=== PATIENT | male | born 1985 | race Caucasian/White ===

== ENCOUNTER 2024-03-22 13:49 | Day surgery (SDC) | payer BC, MEDICAID, SELFPAY ==
--- NOTE | 2024-03-19 07:00 | EKG_ITS ---
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
[2024-03-21 13:47] LABS: Basophils # (Auto) 0.1 Thou/mm3 (0.0-0.2); Basophils % (Auto) 1 % (0-2.5); Eosinophils # (Auto) 0.1 Thou/mm3 (0.0-0.5); Eosinophils % (Auto) 1 % (0-10); Hematocrit 46.1 % (41.0-53.0); Hemoglobin 15.5 g/dL (13.5-16.0); Immature Granulocytes % (Auto) 0 % (0-0); Immature Granulocytes Auto 0.02 Thou/mm3 (0.00-0.00); Lymphocytes # (Auto) 1.8 Thou/mm3 (1.0-4.8); Lymphocytes % (Auto) 22 % (10-50); Mean Corpuscular HGB Conc 33.6 g/dl (31.0-37.0); Mean Corpuscular Volume 86 fL (80-100); Monocytes # (Auto) 0.6 Thou/mm3 (0.0-0.8); Monocytes % (Auto) 7 % (0-12); Neutrophils # (Auto) 5.7 Thou/mm3 (1.8-7.7); Neutrophils % (Auto) 69 % (37-80); Nucleated Red Blood Cell % 0 /100 WBC (0); Platelet Count 212 Thou/mm3 (140-440); RDW Standard Deviation 41.2 fL (35.1-43.9); Red Blood Count 5.35 Miln/mm3 (4.50-5.90); White Blood Count 8.3 Thou/mm3 (3.8-10.6)
[2024-03-21 13:57] LABS: Anion Gap 7 (7-16); BUN/Creatinine Ratio 16 Ratio (12-20); Blood Urea Nitrogen 16 mg/dL (9-23); Calcium 10.1 mg/dL (8.3-10.6); Carbon Dioxide 27.9 mMol/L (20.0-31.0); Chloride 106 mMol/L (98-107); Glucose 109 mg/dL (74-106); Osmolality,Calculated 283 (275-295); Potassium 4.2 mMol/L (3.4-5.1); Sodium 141 mMol/L (136-145); eGFR > 60 See Note
[2024-03-21 14:05] LABS: Partial Thromboplastin Time 30.9 Seconds (22.0-36.0); Prothrombin Time 11.4 Seconds (9.0-12.2)
[2024-03-22] VITALS (12 sets, daily range): BP systolic 105–136; BP diastolic 70–92; PULSE 60–88; RESP 16–24; TEMP 36.8–37; O2SAT 94–100
[2024-03-22] MEDS: DEXTROSE 5%-0.45% NS 500 ML 30 ML IV (14:57)
[2024-03-22] MEDS: CEFAZOLIN IV (14:57)
[2024-03-22] MEDS: SODIUM CHLORIDE 0.9% IV (14:57)
[2024-03-22] MEDS: VANCOMYCIN/NS 1 GM IVPB 200 ML IV (16:42)
--- NOTE | 2024-03-22 17:46 | ESOP_ITS ---
RE: MI SANDERS : 1985 DATE OF OPERATION: 03/22/2024 PROCEDURE PERFORMED: 1. Removal and replacement of dual-chamber permanent pacemaker generator, CPT code 80727. 2. Conscious sedation 30 minutes duration. PREOPERATIVE DIAGNOSES: Complete heart block asystole status post pacemaker implantation. Pacemaker reached elective replacement indicators and battery depletion. The patient is a pacemaker dependent. POSTOPERATIVE DIAGNOSIS: Successful removal and replacement of a dual-chamber permanent pacemaker generator. ANESTHESIA: Conscious sedation under local anesthesia. HISTORY AND INDICATIONS: The patient is a 38-year-old male with a past medical history of aortic valve replacement surgery and complete heart block asystole, pacemaker dependent. He has had a permanent pacemaker implantation more than 20 years ago. The patient is a pacemaker dependent. Recent interrogation showed that the patient's SHAMIKA tripped a month ago. The patient is a pacemaker dependent, now in a VVI mode, symptomatic. Dual-chamber pacemaker generator removal and replacement recommended under conscious sedation under local anesthesia. The patient was on warfarin, which was discontinued prior to the procedure. DESCRIPTION OF PROCEDURE: The patient was brought to cardiac catheterization laboratory. Timeout was taken. Conscious sedation was given with 2 mg Versed and 100 mcg fentanyl, additional 1 mg Versed given. Left subclavian area was prepared in sterile fashion. Linear incision was made over the pocket generator and the generator was exposed. Capsule was restricted. The pocket was explanted and a new generator by [employer] was attached to the lead and antibiotic solution was used to close the pocket. Preop 1 g of Ancef was also given. Subsequently, new Medtronic dual- chamber pacemaker generator was connected, quick connect. Thresholds were excellent. P waves were measured to be 2 volts. R waves could not be measured. The patient has no R waves underlying. Lead impedance atrium 437, _V lead 478, lead threshold 0.75 in atrium, 0.75 in the ventricle. The pacemaker is programmed with dual-chamber mode DDD, rate of 60 beats per minute. Generator was placed in the pocket. Subcutaneous tissue was closed using 2-0 chromic sutures. Skin was closed using mary beth. The generator that was removed and explanted was a [employer]tronic implanted initially on 02/24/2013, serial number [id number]. The device that is implanted today is Medtronic [place] Comfort XT MRI-safe. The [employer] serial number is [id number]. The atrial lead is implanted initially in 2005, Medtronic [id number], ventricle is also in 2006, implanted lead Both leads have good integrity. FINAL SUMMARY: Successful implantation, removal and replacement of a dual- chamber pacemaker generator. ESTIMATED BLOOD LOSS: Zero. COMPLICATIONS: None. The patient will be given antibiotic and will be discharged home on Keflex 500 mg b.i.d. Follow up in one week. DT: 16:19:01 TT: 17:22:00 Ref: [id number] - TID: [id number] MTDD
== END 2024-03-22 18:52 | disposition home or self-care (01) ==
PROVIDERS: PCP Family Medicine; Referring Provider Internal Medicine Cardiovascular Disease; Visit Provider Internal Medicine Cardiovascular Disease
PROC: (CPT 33228; principal; 2024-03-22 13:00)
DX: Z45.010 Encounter for checking and testing of cardiac pacemaker pulse generator [battery] (principal); I44.2 Atrioventricular block, complete; Z95.2 Presence of prosthetic heart valve; Z01.810 Encounter for preprocedural cardiovascular examination
CPT/HCPCS: 33228; 36415; 80048; 85025; 85610; 85730; 93005; 99152; 99153; A4649; C1785; J0171; J0690; J2250; J2310; J2371; J3010; J3370; J3490; J7042

== ENCOUNTER → 2024-06-30 | Outpatient (CLI) | payer BC, SELFPAY ==
[2024-06-30 10:38] LABS: Alanine Aminotransferase 25 U/L (10-49); Albumin, Serum 4.6 gm/dL (3.5-5.0); Alkaline Phosphatase 80 U/L (46-116); Aspartate Amino Transferase 28 U/L (0-34); Bilirubin,Direct 0.2 mg/dL (0.0-0.3); Cardiac Risk Estimate 3.8 RATIO (4.0-6.7); Cholesterol 237 mg/dL (132-200); HDL Cholesterol 63 mg/dL (40-60); LDL Cholesterol,Calculated 149 mg/dL (0-130); Total Protein 6.9 gm/dL (5.7-8.2); Triglycerides 127 mg/dL (30-150)
== END | disposition home or self-care (01) ==
LOC: COPL 09:06
PROVIDERS: PCP Family Medicine; Referring Provider Family Medicine; Visit Provider Family Medicine
DX: E78.5 Hyperlipidemia, unspecified (principal)
CPT/HCPCS: 36415; 80061; 80076